=== PATIENT | male | born 1950 | race Caucasian/White ===

== ENCOUNTER 2018-02-11 08:49 | Inpatient (IN) | payer OTHER ==
[2018-02-18] MEDS ORDERED: MECLIZINE 25 MG TABLET PO ONE (06:00)
[2018-02-18] MEDS ORDERED: METOCLOPRAMIDE 10 MG TABLET PO ONE (06:00)
[2018-02-18] MEDS ORDERED: FAMOTIDINE 20MG TABLET PO ONE (06:00)
[2018-02-18] MEDS ORDERED: CELECOXIB 100 MG CAPSULE PO ONE (06:00)
[2018-02-18] MEDS ORDERED: ACETAMINOPHEN 1,000 MG/100 ML BTL IV ONE (06:00)
[2018-02-18] MEDS ORDERED: VANCOMYCIN HCL 1,000 MG in DEXTROSE 5 % IN WATER 250 ML IVPB ONE ×2 (06:00)
[2018-02-18 10:53] LABS: ABO GROUP O; RH TYPE POSITIVE
[2018-02-18 10:54] LABS: ANTIBODY SCREEN NEGATIVE (NEGATIVE)
[2018-02-18] MEDS ORDERED: KETOROLAC 30 MG/ML VIAL IVP PRN ×2 (12:23)
[2018-02-18] MEDS ORDERED: AL HYDROX/MAG HYDROX 30ML UD PO PRN (12:23)
[2018-02-18] MEDS ORDERED: HYDROCODONE/APAP 7.5/325MG TABLET PO PRN ×2 (12:23)
[2018-02-18] MEDS ORDERED: BISACODYL 10 MG SUPP RC PRN (12:23)
[2018-02-18] MEDS ORDERED: TRAMADOL HCL 50 MG TABLET PO PRN ×2 (12:23)
[2018-02-18] MEDS ORDERED: ONDANSETRON HCL IV 4 MG/2 ML VIAL IVP PRN (12:23)
[2018-02-18] MEDS ORDERED: HYDROMORPHONE HCL 2 MG/ML VIAL IM PRN ×2 (12:23)
[2018-02-18] MEDS ORDERED: ZOLPIDEM TARTRATE 5 MG TABLET PO PRN (12:23)
[2018-02-18] MEDS ORDERED: HYDROCODONE/APAP 5/325MG TABLET PO PRN ×2 (12:23)
[2018-02-18] MEDS ORDERED: DIPHENHYDRAMINE HCL 25 MG CAPSULE PO PRN (12:23)
[2018-02-18] MEDS ORDERED: NALOXONE 0.4 MG/1 ML VIAL IVP PRN (12:23)
[2018-02-18] MEDS ORDERED: PROMETHAZINE HCL 12.5 MG in 0.9 % SODIUM CHLORIDE 100ML 50 ML IVPB PRN (12:23)
[2018-02-18] MEDS ORDERED: ACETAMINOPHEN W/ CODEINE 300MG/60MG TABLET PO PRN ×2 (12:23)
[2018-02-18] MEDS ORDERED: ACETAMINOPHEN W/ CODEINE 300MG/30MG TABLET PO PRN ×2 (12:23)
[2018-02-18] MEDS ORDERED: METOCLOPRAMIDE HCL 10 MG/2 ML VIAL IVP PRN (12:23)
[2018-02-18] MEDS ORDERED: ACETAMINOPHEN 325 MG TAB PO PRN (12:23)
[2018-02-18] MEDS ORDERED: MAGNESIUM HYDROXIDE 30 ML UDC PO PRN (12:23)
[2018-02-18] MEDS ORDERED: *PACU ONLY* KETAMINE HCL 10 MG/ML (20ML) VIAL IV ONE (14:00)
[2018-02-18] MEDS ORDERED: MIDAZOLAM HCL 2MG/2ML VIAL IV ONE (14:00)
[2018-02-18] MEDS ORDERED: PROPOFOL 10 MG/ML VIAL IV ONE (14:00)
[2018-02-18] MEDS ORDERED: KETOROLAC 30 MG/ML VIAL IVP ONE (14:00)
[2018-02-18] MEDS ORDERED: ROPIVACAINE HCL (NAROPIN) /PF 5MG/ML 20ML VIAL IV ONE (14:03)
[2018-02-18] MEDS ORDERED: DEXAMETHASONE 4 MG/ML 1ML VIAL IVP ONE (14:03)
[2018-02-18] MEDS ORDERED: DEXTROSE 5 % AND 0.9 % NACL 1,000 ML IV PRN (14:30)
[2018-02-18] MEDS: LOSARTAN POTASSIUM 25 MG TABLET PO SCH (22:14)
[2018-02-18] MEDS: FERROUS SULFATE 325 MG TAB PO SCH (22:14)
[2018-02-18] MEDS: DOCUSATE SODIUM 100 MG CAPSULE PO SCH (22:14)
[2018-02-18] MEDS: VANCOMYCIN HCL 1,000 MG in DEXTROSE 5 % IN WATER 250 ML IVPB SCH ×2 (22:15)
[2018-02-18] MEDS: AMLODIPINE BESYLATE 5MG TAB PO SCH (22:18)
--- NOTE | 2018-02-19 06:09 | RADIOLOGY REPORT ---
EXAM: LEFT KNEE, TWO VIEWS HISTORY: TOTAL KNEE REPLACEMENT. TECHNIQUE: Two views of the left knee were obtained. Comparison: None. FINDINGS: Two views of the left knee show a total knee arthroplasty in anatomic alignment. There is also a small screw in the distal femur. Tiny overhanging of cement on the lateral aspect of the tibial plateau. Tiny lucency distal to the cement in the tibia. No fractures. Normal alignment. IMPRESSION: TOTAL LEFT KNEE ARTHROPLASTY. JOB NUMBER: [id number] MTDD
[2018-02-19 07:03] LABS: HEMATOCRIT 37.4 % (42.0-52.0); HEMOGLOBIN 12.3 gm/dl (14.0-18.0)
[2018-02-19] MEDS: FERROUS SULFATE 325 MG TAB PO SCH ×2 (09:43→21:10)
[2018-02-19] MEDS: RIVAROXABAN 10 MG TABLET PO SCH (09:44)
[2018-02-19] MEDS: DOCUSATE SODIUM 100 MG CAPSULE PO SCH ×2 (09:48→21:10)
[2018-02-19] MEDS: CELECOXIB 100 MG CAPSULE PO SCH (09:49)
--- NOTE | 2018-02-19 09:50 | Rehab Evaluation ---
Patient Information - Patient Information Diagnosis: L knee OA Ordered Treatment: PT Evaluate and Treat Status: Initial Evaluation Surgery: Yes Date of Surgery: 02/18/18 (hardware removal and L TKA) Past Medical/Surgical Hx: PAST MEDICAL/SURGICAL HISTORY Past Surgical History ORIF right ankle lumbar fusion left femur ORIF 2014 Left patella fx tonsils c scopes PMH - Respiratory Hx Respiratory Disorders No PMH - Cardiovascular Hx Cardiovascular Disorders Yes Hx Hypertension Yes: on meds good control Exercise Tolerance Good PMH - Neuro Hx Neurological Disorders Yes Hx Neuropathy Yes: feet since back sx PMH - GI Hx Gastrointestinal Disorders Yes Hx Gastroesophageal Reflux Yes: once in a whiile Comment: pt incontinent of stool sometimes since lumbar injury PMH - Hx Genitourinary Disorders Yes Hx Bladder Problem Yes: pt incontinent since lumbar injury wears depends PMH - Endocrine Hx Endocrine Disorders No PMH - Musculoskeletal Hx Musculoskeletal Disorders Yes Hx Arthritis Yes: left knee Hx Back Injury Yes PMH - Psych Hx Psychiatric Problems No PMH - Hematology/Oncology Hx Hematology/Oncology Yes Disorders Hx Blood Transfusion Reaction No Premorbid Status: Detail (The patient prior to surgery had difficulty ambulating at times.) Social History: Detail (The patient lives with spouse in a one story house with spouse with no stairs at the enterance. The patient's bathroom is equipped with a walke in shower with grab bars, an elevated toilet seat without grab bars. The patient also has a commode with handles that he uses sometimes in the shower. The patient has a two wheeled walker, a rollator walker and a single point cane.) Precautions: [place], Fall, Other (WBAT on the L. Patient also has a Don Kamila brace which is locked in full extension.) - Time With Patient Total Time Spent With Patient (Min): 30 Treatment Procedures: Detail (Initial Evaluation, gait training.) Subjective Information - Subjective Information Per Patient (The patient has no complaints of pain.) Objective Data - Mental Status Patient Orientation: Oriented x3 - Visual Perception Appears within normal limits for therapeutic activities - ROM Not within normal limits (The patient's L knee AROM is limited s/p surgery. Patient has Don Kamila brace locked in 0 degrees on extension. All other AROM is WNL.) - Strength/Tone Not within normal limits (The patient's L LE strength was not tested s/p surgery however is functional.( Patient is able to complete a SLR.) The patient' s R LE strength is WFL.) - Bed Mobility Independent (The patient is independent with supine to and from sit.) - Transfers Independent (The patient is independent with sit to and from stand.) - Balance Balance Sitting: Good Balance Standing: Good - Gait Detail (The patient ambulated with two wheeled walker independently WBAT on the L LE 560 feet x [address]. The patient did not ambulate on steps due to no stairs at home however the patient was able to verbalize the proper stair climbing technique.) Patient Education - Patient Education Teaching Topic: Exercise/Activity (The patient was independent with a modified HEP including: ankle pumps, gluteal sets, submaximal quad set and SLR.) Response: Return Demonstration Teaching Method: Discussion, Demonstration, Handout Teaching Recipient: Patient Barriers To Learning: None Problem List - Problem List Physical Therapy Problem List: Detail (1) Decreased L knee AROM and strength as to be expected following surgery.) Goals - Goals Physical Therapy Goals: The patient has met all inpatient goals. Prognosis - Prognosis Good Plan - Plan Physical Therapy Plan: The patient is discharged from inpatient PT and is to receive Outpatient PT.
[2018-02-19] MEDS: VANCOMYCIN HCL 1,000 MG in DEXTROSE 5 % IN WATER 250 ML IVPB SCH ×2 (11:30)
--- NOTE | 2018-02-19 15:34 | Rehab Evaluation ---
Patient Information - Patient Information Diagnosis: L knee OA, retained femoral hardware Ordered Treatment: OT Evaluate and Treat Status: Initial Evaluation Surgery: Yes Date of Surgery: 02/18/18 (hardware removal and L TKA) Past Medical/Surgical Hx: PAST MEDICAL/SURGICAL HISTORY Past Surgical History ORIF right ankle lumbar fusion left femur ORIF 2015 Left patella fx tonsils c scopes PMH - Respiratory Hx Respiratory Disorders No PMH - Cardiovascular Hx Cardiovascular Disorders Yes Hx Hypertension Yes: on meds good control Exercise Tolerance Good PMH - Neuro Hx Neurological Disorders Yes Hx Neuropathy Yes: feet since back sx PMH - GI Hx Gastrointestinal Disorders Yes Hx Gastroesophageal Reflux Yes: once in a whiile Comment: pt incontinent of stool sometimes since lumbar injury PMH - Hx Genitourinary Disorders Yes Hx Bladder Problem Yes: pt incontinent since lumbar injury wears depends PMH - Endocrine Hx Endocrine Disorders No PMH - Musculoskeletal Hx Musculoskeletal Disorders Yes Hx Arthritis Yes: left knee Hx Back Injury Yes PMH - Psych Hx Psychiatric Problems No PMH - Hematology/Oncology Hx Hematology/Oncology Yes Disorders Hx Blood Transfusion Reaction No Premorbid Status: Detail (The patient prior to surgery had difficulty ambulating at times.) Social History: Detail (The patient lives with spouse in a one story house with no stairs at the entrance. The patient's bathroom is equipped with a walk in shower with grab bars, an elevated toilet seat without grab bars. The patient also has a commode with handles that he uses sometimes in the shower. The patient has a two wheeled walker, a rollator walker and a single point cane. He and spouse share meal prep, laundry and home mgmt.) Precautions: [place], Fall, Other (WBAT on the L. Patient also has a Don Kamila brace which is locked in full extension.) - Time With Patient Total Time Spent With Patient (Min): 40 Treatment Procedures: Detail (OT eval low complexity) Subjective Information - Subjective Information Per Patient Objective Data - Pain Pain Present: No - Mental Status Patient Orientation: Oriented x3 - Visual Perception Appears within normal limits for therapeutic activities - ROM Within normal limits (Cliff UE AROM WNL) - Strength/Tone Within normal limits (Cliff UE strength WNL) - Coordination Appears within normal limits for therapeutic activities - Bed Mobility Independent (Ind with sit to supine) - Transfers Independent (Ind with sit to stand from chair and EOB.) - Balance Balance Sitting: Good Balance Standing: Good - Sensation Intact - Gait Detail (Pt ambulating in room with 2 wheeled walker Indly.) - ADL's/IADL's Detail (Pt educated and able to demonstrate learning of modified LE dressing technique including doffing slipper socks and donning shorts. He was not able to don socks and shoes due to dressing change but reports his will assist him as needed. Reviewed kitchen and shower safety and modifications, pt verbalized learning.) Therapy Assessment - Therapy Assessment Detail (Pt is Ind with self cares and has support from spouse if needed.) Problem List - Problem List Physical Therapy Problem List: Detail (1) Decreased L knee AROM and strength as to be expected following surgery.) Occupational Therapy Problem List: Detail (No current IP OT problems identified. ) Goals - Goals Physical Therapy Goals: The patient has met all inpatient goals. Occupational Therapy Goals: No current IP OT goals identified. Prognosis - Prognosis Good Plan - Plan Physical Therapy Plan: The patient is discharged from inpatient PT and is to receive Outpatient PT. Occupational Therapy Plan: No further IP OT recommended. Thank you for this referral.
[2018-02-19] MEDS: AMLODIPINE BESYLATE 5MG TAB PO SCH (21:10)
[2018-02-19] MEDS: LOSARTAN POTASSIUM 25 MG TABLET PO SCH (21:10)
[2018-02-20 06:55] LABS: HEMOGLOBIN 10.5 gm/dl (14.0-18.0)
[2018-02-20] MEDS: RIVAROXABAN 10 MG TABLET PO SCH (09:46)
[2018-02-20] MEDS: CELECOXIB 100 MG CAPSULE PO SCH (09:46)
[2018-02-20] MEDS: DOCUSATE SODIUM 100 MG CAPSULE PO SCH (09:46)
[2018-02-20] MEDS: FERROUS SULFATE 325 MG TAB PO SCH (09:46)
[2018-02-20] MEDS ORDERED: BUPIVACAINE 0.5% W/EPI MPF 30 ML VIAL IVP ONE (14:31)
[2018-02-20] MEDS ORDERED: TRANEXAMIC ACID 1,000 MG/10 ML ML IV ONE (14:31)
[2018-02-20] MEDS ORDERED: VANCOMYCIN HCL 1 GM VIAL IVPB ONE (14:31)
--- NOTE | 2018-02-21 22:24 | Operative Note ---
DATE OF SURGERY: 02/18/2018 PREOPERATIVE DIAGNOSES: Left knee arthrosis status post open reduction and internal fixation of a distal femur fracture and knee severe stiffness. POSTOPERATIVE DIAGNOSES: Left knee arthrosis status post open reduction and internal fixation of a distal femur fracture and knee severe stiffness. PROCEDURE: 1. Hardware removal of lateral femoral side plate and screws with irrigation and debridement. 2. Quadriceps V-Y advancement and release. 3. Total knee arthroplasty. SURGEON: Roney Vanegas M.D. ANESTHESIA: Spinal, Alexandru Kennedy CRNA. COMPLICATIONS: None. BLOOD LOSS: Minimal. TOURNIQUET TIME: Approximately 110 minutes. OPERATIVE FINDINGS: Healed distal femur fracture. All retained hardware, lateral femoral side plate removed except for one screw in the medial side, small 3.5 screw. [id number] knee arthrosis and very severe tight quadriceps, soft osteoporotic bone, severe scarring in the knee and stiffness. Flexion pre- op was 5 to about 30 degrees; during the knee replacement, 0 to 100; and after doing our advancement and patellar tendon repair about 0 to 30-40 degrees. INDICATIONS FOR OPERATION: This is a 67-year-old male who has a distal femur fracture internal fixation done about 2.5 years ago. He did well and eventually healed but developed severe stiffness in the knee and arthrosis. He is scheduled for the procedures above. I explained the risks and benefits to him in detail for his diagnoses and procedures including but not limited to, infection, nerve injury, vessel injury, persistent pain, persistent numbness and tingling in his knee, periprosthetic fracture, need for resection arthroplasty should the components become infected or loosened, blood clot, and need for further procedures and all of his questions were answered. Rehab and course were outlined and he agreed to proceed. PROCEDURE: The patient was brought to the O.R. and placed in the supine position for proper surgery. His left lower and knee and thigh were prepped and draped in sterile fashion from the hip down for exposure to the lateral thigh. Attention was turned to removing the side plate. We used the previous incision on the distal femur, dissected down on the plate, removed both side screws at the condyles without difficulty in their entirety. Next, the three proximal screws were removed; one percutaneous and two through a limited open incision under direct visualization, again without difficulty. We elevated using Malin elevators and osteotomes and then back-tapped it out distally out of the distal thigh wound. We irrigated both wounds. Closed with # 2 Vicryl, #2-0 Vicryl, and breana. Attention was turned to the knee replacement now. Anterior incision was marked over the knee. We infiltrated with 0.5% Marcaine with Epinephrine. The skin and subcutaneous tissue was dissected down. He had extensive scarring throughout. We incised the capsule medially around the medial border of the patella to the tibial tubercle. I incised the vastus medialis in line with its fibers in a mid vastus split approach. The patella was too scarred down to fito. We shifted laterally with flexion and basically the patellar tendon impulsed completely. He had a severe contracture here and later repaired. Next, we then drilled intracondylar drill hole in the femur and inserted the intramedullary guide danielito and 6 degree cutting block aligned off the distal femoral condyles and cut the distal femoral condyles. Next, we placed the sizing jig on the distal femoral condyle, sized it to be right on size 9. Through the previously placed pinholes, we placed the size 9 5- in-1 cutting jig. We dialed in the anterior cut so it would come out flush without notching and we cut that. It was a good cut and then cut the remainder of the chamfer cuts in the usual fashion. Next, then we placed the size 9 trial component. We centered it, pinned it, removed osteophytes off the periphery. We inserted the resection collar and reamed out and box-osteotomed out the cruciate bone block. We did an extensive amount of scar release, first from the tibial plateau previously to expose the tibia. We seated the spikes in the intertubercular groove two fingerbreadths distally off the anterior cortex. We referenced for a 9 mm cut off the higher lateral plateau. We pinned the cutting jig in place provisionally, rechecked alignment and pinned it, cross-pinned it to complete its fixation. We cut the tibia. The bone was very soft. Next, we removed osteophytes from the posterior femoral condyles using a curved osteotome and removing adhesions and scarring from the meniscus. We checked flexion and extension gaps. We basically had symmetric flexion and extension gaps with an 11 thick poly insert allowing for 2 to 3 mm of varus/valgus laxity in flexion and extension. Overall alignment of cuts in extension were in anatomic valgus orientation. Next, I took the knee into flexion, sized the tibial baseplate to a size 8. We replaced all trial components, set the rotation of the tibial baseplate again in extension using the alignment danielito centered on the hip joint and ankle joint and marked with electrocautery chin on the tibial cortex. Attention was turned to the patella. We cut the patella to allow for a 9 mm thick poly insert. We chamfered off the lateral patellar facet and sized it be 35. We drilled three lithographic photographer apprentice holes, mixed cement, and did a trial range of motion. The patella was bolused previously and then we repaired to the tibial tubercle. We had full extension and flexion to probably 100 degrees. We could tell that it was going to be very tight once we repaired the patellar tendon as far as flexion goes, which it was. Next, then we irrigated copious, changed gloves and brought in a clean sheet. We placed a bone plug in the femoral canal hole and pre-coated both surfaces and impacted down the tibial component and then femoral component, removing excess cement, and then placed the trial tibial poly liner and held the knee in extension and then clamped down the patellar component, removing excess cement. We held the knee in extension until the cement hardened and removed excess cement. Next, we took the knee into flexion. We distracted the knee with bone hook and sponge and removed the trial tibial poly insert. We removed any excess cement around the edges of the components. We injected our injection cocktail of 0.5% Marcaine with Epinephrine, tranexamic acid, and Exparel into the deep capsule medial and lateral, mediolateral periosteum working out superficially, and the quadriceps and vastus medialis. We then impacted down the real tibial poly insert and verified it was interlocked medially and laterally. Final range of motion and stability was the same. Next, we repaired the patellar tendon down to the tibial tubercle with a 4.0 mm cancellous screw and washer and also previously placed a #5 FiberWire suture through drill holes transverse through the tibial tubercle and used a Krackow stitch to traverse medially and laterally , brought it through proximally and then distally and then through proximally and distally medially and laterally, respectively. We tied down over the top securing the patellar tendon to the tibial tubercle. After that repair, range of motion of course was decreased, approximately 0 to 30 degrees. We previously did a V-Y advancement of the quadriceps tendon as well and then repaired and advanced that 2 to 3 cm and tied with #2 Vicryl to try to give him some more flexion early on. Next, we irrigated the knee copiously. We repaired the capsule and quadriceps split with running #2 Quill suture. We irrigated again and closed the skin with #2-0 Vicryl, placed Acticoat and provisional sterile dressing on to be changed to a TAMIA dressing prior to discharge. A knee brace was placed locked at 0 to 30 degrees. The patient tolerated the procedure well. No intraoperative complications. Sponge, needle, and blade counts were correct. He was taken to the Recovery Room neurovascularly intact. He will be discharge in likely one to two days and follow-up in two weeks. JOB NUMBER: [id number], [id number] [facility]
== END 2018-02-20 15:03 | disposition home or self-care (01) | DRG 470 ==
LOC: MEDSURG 02-18 09:52
PROVIDERS: ADMIT Orthopaedic Surgery; ATTEND Orthopaedic Surgery
PROC: 0QPC04Z Removal of Internal Fixation Device from Left Lower Femur, Open Approach (ICD-10-PCS; principal; 2018-02-18 12:00)
PROC: 0SRD069 Replacement of Left Knee Joint with Oxidized Zirconium on Polyethylene Synthetic Substitute, Cemented, Open Approach (ICD-10-PCS; 2018-02-18 12:00)
DX: M17.12 Unilateral primary osteoarthritis, left knee (principal); Z47.2 Encounter for removal of internal fixation device; I10 Essential (primary) hypertension
CPT/HCPCS: 76000; 85014; 85018; 86850; 86900; 86901; 90686; C1713; J1885; J7060

== ENCOUNTER 2018-10-14 09:46 | Day surgery (SDC) | payer OTHER ==
[~2018-10-14 09:46] MED LIST: ACETAMINOPHEN 1,000 MG/100 ML BTL IVPB ONE; CELECOXIB 100 MG CAPSULE PO ONE; FAMOTIDINE 20MG TABLET PO ONE; METOCLOPRAMIDE 10 MG TABLET PO ONE; SCOPOLAMINE 1 PATCH TDSY TD ONE; VANCOMYCIN HCL 1 MG in DEXTROSE 5 % IN WATER 250 ML IVPB ONE
[2018-10-14] MEDS ORDERED: TRANEXAMIC ACID 1,000 MG/10 ML ML IV ONE (09:47)
[2018-10-14] MEDS ORDERED: PROPOFOL 10 MG/ML VIAL IV ONE (09:47)
[2018-10-14] MEDS ORDERED: BUPIVACAINE 0.5% W/EPI MPF 30 ML VIAL IVP ONE (09:47)
[2018-10-14] MEDS ORDERED: BUPIVACAINE LIPOSOME 266MG/20ML VIAL IV ONE (09:47)
[2018-10-14] MEDS ORDERED: VANCOMYCIN HCL 1 GM VIAL IVPB ONE (09:47)
[2018-10-14] MEDS ORDERED: MIDAZOLAM HCL 2MG/2ML VIAL IV ONE (09:47)
[2018-10-14] MEDS ORDERED: KETOROLAC 30 MG/ML VIAL IVP ONE (09:47)
[2018-10-14] MEDS ORDERED: GLYCOPYRROLATE 0.2 MG/ML ML IV ONE (09:47)
[2018-10-14] MEDS ORDERED: LIDOCAINE 2% MDV (20MG/ML) 20ML VIAL IV ONE (09:47)
[2018-10-14 10:43] LABS: ABO GROUP O; RH TYPE POSITIVE
[2018-10-14 10:44] LABS: ANTIBODY SCREEN NEGATIVE (NEGATIVE)
[2018-10-14] MEDS ORDERED: RINGERS SOLUTION,LACTATED 1,000 ML IV ONE ×3 (11:04→14:13)
[2018-10-14] MEDS ORDERED: BUPIVACAINE 0.5% W/EPI MPF 30 ML VIAL SQ ONE (14:12)
[2018-10-14] MEDS ORDERED: BUPIVACAINE LIPOSOME 266MG/20ML VIAL SQ ONE (14:12)
[2018-10-14] MEDS ORDERED: VANCOMYCIN HCL 3,000 MG in RINGERS SOLUTION,LACTATED 3,000 ML IVPB ONE (14:14)
[2018-10-14] MEDS ORDERED: HYDROCODONE/APAP 5/325MG TABLET PO PRN ×2 (15:27)
[2018-10-14] MEDS ORDERED: AL HYDROX/MAG HYDROX 30ML UD PO PRN (15:27)
[2018-10-14] MEDS ORDERED: TRAMADOL HCL 50 MG TABLET PO PRN ×2 (15:27)
[2018-10-14] MEDS ORDERED: PROMETHAZINE HCL 25 MG TABLET PO PRN (15:27)
[2018-10-14] MEDS ORDERED: ACETAMINOPHEN 325 MG TAB PO PRN (15:27)
[2018-10-14] MEDS ORDERED: NALOXONE 0.4 MG/1 ML VIAL IVP PRN (15:27)
[2018-10-14] MEDS ORDERED: MAGNESIUM HYDROXIDE 30 ML UDC PO PRN (15:27)
[2018-10-14] MEDS ORDERED: DIPHENHYDRAMINE HCL 25 MG CAPSULE PO PRN (15:27)
[2018-10-14] MEDS ORDERED: KETOROLAC 30 MG/ML VIAL IVP PRN ×2 (15:27)
[2018-10-14] MEDS ORDERED: METOCLOPRAMIDE 10 MG TABLET PO PRN (15:27)
[2018-10-14] MEDS ORDERED: ONDANSETRON 4 MG ODT TABLET SL PRN (15:27)
[2018-10-14] MEDS ORDERED: ACETAMINOPHEN W/ CODEINE 300MG/60MG TABLET PO PRN ×2 (15:27)
[2018-10-14] MEDS ORDERED: HYDROCODONE/APAP 7.5/325MG TABLET PO PRN ×2 (15:27)
[2018-10-14] MEDS ORDERED: BISACODYL 10 MG SUPP RC PRN (15:27)
[2018-10-14] MEDS ORDERED: ACETAMINOPHEN W/ CODEINE 300MG/30MG TABLET PO PRN ×2 (15:27)
[2018-10-14] MEDS ORDERED: VANCOMYCIN HCL 500 MG in 0.9 % SODIUM CHLORIDE 100ML 100 ML IVPB SCH (16:00)
[2018-10-14] MEDS ORDERED: DEXTROSE 5 % AND 0.9 % NACL 1,000 ML IV PRN (16:00)
--- NOTE | 2018-10-14 16:48 | Rehab Evaluation ---
Patient Information - Patient Information Diagnosis: Pain due to internal orthopedic prosthesis - L Knee Ordered Treatment: PT Evaluate and Treat Status: Initial Evaluation Surgery: Yes (Clean out - BLACK L Knee) Date of Surgery: 10/14/18 Past Medical/Surgical Hx: PAST MEDICAL/SURGICAL HISTORY Past Surgical History DEBRIDEMENTS LEFT KNEE X'S 2 LTKA 9-24-18 ORIF right ankle lumbar fusion left femur ORIF 2014 Left patella fx tonsils c scopes PMH - Respiratory Hx Respiratory Disorders No PMH - Cardiovascular Hx Cardiovascular Disorders Yes Hx Hypertension Yes: on meds good control Exercise Tolerance Fair PMH - Neuro Hx Neurological Disorders Yes Hx Neuropathy Yes: feet since back sx PMH - GI Hx Gastrointestinal Disorders Yes Hx Gastroesophageal Reflux Yes: once in a whiile Comment: pt incontinent of stool sometimes since lumbar injury PMH - Hx Genitourinary Disorders Yes Hx Bladder Problem Yes: pt incontinent since lumbar injury wears depends PMH - Endocrine Hx Endocrine Disorders No PMH - Musculoskeletal Hx Musculoskeletal Disorders Yes Hx Arthritis Yes: left knee Hx Back Injury Yes PMH - Psych Hx Psychiatric Problems No PMH - Hematology/Oncology Hx Hematology/Oncology Yes Disorders Hx Blood Transfusion Reaction No Premorbid Status: Detail (Patient had complications following TKA and required BLACK. Patient reports prior to surgery patient was retired but works occassionally at [employer]. Return to work date is undetermined at this time.) Social History: Detail (Patient currently lives in single story home with his spouse with 0 steps entering the home. Patient reports that he has a walk in shower with grab bars and a hand held shower piece. Patient reports that toilet is elevated with grab bars around it as well. Patient reports that he has a shower bench, walker, and cane available. Patient is currently attending outpatient PT and is expecting to continue following discharge. Patient is planning on leaving in [place] following discharge.) - Time With Patient Total Time Spent With Patient (Min): 20 Subjective Information - Subjective Information Per Patient (Patient reported no pain throughout evaluation.) Objective Data - Mental Status Patient Orientation: Oriented x3 - ROM Not within normal limits (Patient's left lower extremity range of motion was limited due to s/p surgery, as expected. Patient's right lower extremity range of motion was found to be within functional limits with sit to stand transfer and ambulation.) - Strength/Tone Not within normal limits (Patient's left lower extremity strength was limited due to s/p surgery, as expected. Patient was assessed functionally with sit to stand transfer and ambulation and was determined to be within functional limits.) - Transfers Independent (Patient completed sit to stand transfer from sitting L EOB with 2- wheeled walker for support and supervision x1 for safety.) - Gait Detail (Patient ambulated with 2-wheeled walker with [id number] for safety for a total of 544 feet. Patient ambulated with antalgic gait with decreased heel strike and stride length, as expected due to patient being s/p surgery. At the end of ambulation, patient demonstrated slightly flexed trunk posture due to increased weight bearing through upper extremities.) Therapy Assessment - Therapy Assessment Detail (Patient did well throughout evaluation and was motivated to regain strength. Patient completed sit to stand transfer from L EOB with supervision x1. Patient then ambulated 544 feet with 2-wheeled walker with CGAx1 initially for safety and then progressed to supervision x1. Patient reported that he was motivated to go home. Patient demonstrated that he was independent with his home exercise program and is currently receiving outpatient physical therapy.) Patient Education - Patient Education Teaching Topic: Exercise/Activity (Patient was educated on home exercise program and was deemed to be independent with all exercises.) Problem List - Problem List Physical Therapy Problem List: Detail (1. Decreased strength in left lower extremity due to s/p surgery. 2. Decreased range of motion in left lower extremity due to s/p surgery. 3. Altered gait pattern due compensation over time due to patient's pain and scar tissue condition.) Goals - Goals Physical Therapy Goals: Patient has met all inpatient PT goals and is expected to continue outpatient PT. Prognosis - Prognosis Good Plan - Plan Physical Therapy Plan: Patient is found to be safe and independent with transfers with sit to stand and ambulation. Patient is ready for discharge from inpatient PT and would benefit from continued outpatient PT.
[2018-10-14] MEDS ORDERED: DOCUSATE SODIUM 100 MG CAPSULE PO SCH (22:00)
--- NOTE | 2018-10-15 07:19 | Rehab Evaluation ---
Patient Information - Patient Information Diagnosis: Pain due to internal orthopedic prosthesis - L Knee Ordered Treatment: OT Evaluate and Treat Status: Initial Evaluation Surgery: Yes (left knee revision and removal of antibiotic beads) Date of Surgery: 10/14/18 Past Medical/Surgical Hx: PAST MEDICAL/SURGICAL HISTORY Past Surgical History DEBRIDEMENTS LEFT KNEE X'S 2 LTKA 9-24-18 ORIF right ankle lumbar fusion left femur ORIF 2014 Left patella fx tonsils c scopes PMH - Respiratory Hx Respiratory Disorders No PMH - Cardiovascular Hx Cardiovascular Disorders Yes Hx Hypertension Yes: on meds good control Exercise Tolerance Fair PMH - Neuro Hx Neurological Disorders Yes Hx Neuropathy Yes: feet since back sx PMH - GI Hx Gastrointestinal Disorders Yes Hx Gastroesophageal Reflux Yes: once in a whiile Comment: pt incontinent of stool sometimes since lumbar injury PMH - Hx Genitourinary Disorders Yes Hx Bladder Problem Yes: pt incontinent since lumbar injury wears depends PMH - Endocrine Hx Endocrine Disorders No PMH - Musculoskeletal Hx Musculoskeletal Disorders Yes Hx Arthritis Yes: left knee Hx Back Injury Yes PMH - Psych Hx Psychiatric Problems No PMH - Hematology/Oncology Hx Hematology/Oncology Yes Disorders Hx Blood Transfusion Reaction No Social History: Detail (Patient currently lives in single story home with his spouse with 0 steps entering the home. Patient reports that he has a walk in shower with grab bars and a hand held shower. Patient reports that toilet is elevated without grab bars but a half wall next to toilet. Patient reports that he has a shower bench, walker, and cane available. Patient is currently attending outpatient PT and is expecting to continue following discharge. Pt is responsible for home mgmt, meal prep and laundry.) Precautions: [place], Fall - Time With Patient Total Time Spent With Patient (Min): 35 Treatment Procedures: Detail (OT eval low complexity) Subjective Information - Subjective Information Per Patient Objective Data - Pain Pain Present: Yes (06/06) - Mental Status Patient Orientation: Oriented x3 - Visual Perception Appears within normal limits for therapeutic activities - ROM Within normal limits (Cliff UE AROM WNL) - Strength/Tone Within normal limits (Cliff UE strength WNL) - Coordination Appears within normal limits for therapeutic activities - Bed Mobility Independent (Ind with supine to sit) - Transfers Independent (Ind with sit to stand from EOB) - Balance Balance Sitting: Good Balance Standing: Good - Sensation Intact - ADL's/IADL's Detail (Pt educated and able to demonstrate modified LE dressing techniques including doffing slipper socks and donning shorts, socks and slip on shoes. Reviewed shower and kitchen modifications and safety, pt verbalized understanding.) Therapy Assessment - Therapy Assessment Detail (Pt is Ind with modified LE dressing techniques.) Problem List - Problem List Physical Therapy Problem List: Detail (1. Decreased strength in left lower extremity due to s/p surgery. 2. Decreased range of motion in left lower extremity due to s/p surgery. 3. Altered gait pattern due compensation over time due to patient's pain and scar tissue condition.) Occupational Therapy Problem List: Detail (No current IP OT problems identified.) Goals - Goals Physical Therapy Goals: Patient has met all inpatient PT goals and is expected to continue outpatient PT. Occupational Therapy Goals: No current IP OT goals identified. Prognosis - Prognosis Good Plan - Plan Physical Therapy Plan: Patient is found to be safe and independent with transfers with sit to stand and ambulation. Patient is ready for discharge from inpatient PT and would benefit from continued outpatient PT. Occupational Therapy Plan: No further IP OT recommended. Thank you for this referral.
--- NOTE | 2018-10-17 08:20 | Operative Note ---
DATE OF SURGERY: 10/14/2018 PREOPERATIVE DIAGNOSIS: Infection status post total knee arthroplasty, status post debridement and placement of antibiotic beads and attempted repair of patellar tendon previously. POSTOPERATIVE DIAGNOSIS: Infection status post total knee arthroplasty, status post debridement and placement of antibiotic beads and attempted repair of patellar tendon previously. OPERATION: 1. Irrigation and debridement of muscle and subcutaneous tissue capsule scar and bone. 2. Removal of cement antibiotic beads, 22 out of 24. SURGEON: Roney Vanegas M.D. ANESTHESIA: Spinal. ANESTHESIA PROVIDER: VAUGHN Guerra CRNA COMPLICATIONS: None. ESTIMATED BLOOD LOSS: Minimal. TOURNIQUET TIME: Approximately 60 minutes. OPERATIVE FINDINGS: Almost completely absent deficient extensor mechanism patellar tendon, the mid portion of it, 2/3 is atrophied and retracted back past the joint line. There is still a portion of it attached, although scar tissue anterior medially, prior subq tendons also deficient, some scars and defects in that. Massive scarring throughout the knee, severe stiffness, limited range of motion. Flexion was approximately 10 to 40 degrees. No gross instability in the knee. INDICATION: This is a 68-year-old male who has had long problems with his left knee, he had a distal femur fracture years ago and underwent internal fixation. 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 He underwent, by myself, hardware removal, again massive scarring was found in the anterior lateral knee throughout the knee, hardware removal lateral distal femur plate screws and then a total knee arthroplasty. He initially did well and then developed infection. He underwent irrigation and debridement and his patellar tendon had been eaten away by the infection distally, except the anterior medial portion. He underwent placement of antibiotic beads about 4 months ago, now scheduled for debridement and removal. I explained the risks and benefits to him in detail for the diagnosis and the procedure and the fact that we may not be able and likely will not be able to remove all beads due to the massive scarring throughout the knee, also nerve infection, blood clot, nerve injury, vessel injury, the need for anticoagulation, blood clots with needed medication, need for procedures, need for recurrence of infection, need for long-term IV antibiotics, and postoperative stiffness, may need an amputation. All of his questions were answered. The course outlined and he agreed to proceed. PROCEDURE: The patient was brought into the OR and placed in the supine position, prepped for surgery. Spinal anesthesia is induced, and his left lower extremity and knee were prepped and draped in sterile fashion, the left knee was prepped again with Chloraprep and it was draped. An intraoperative timeout was performed. Next, preoperative range of motion as above, very stiff knee and he had had this actually even before his knee replacement, a very stiff range of motion. We exsanguinated the leg with Esmarch and infiltrated the incision with 0.5% Marcaine with epinephrine, tranexamic acid and Exparel mixture, a portion of it and then we exsanguinated his leg, inflated the tourniquet to 250 mmHg pressure. Next, the skin and subcutaneous dissected down to the knee and immediately evident a large, thick scarring throughout the knee. We dissected through the scar anteriorly and the patellar defect was readily evident. There was an approximately a 3 x 5 cm defect in the midline of the extensor mechanism of the patellar tendon which is a thin scar and retracted back. The anterior medial portion about 2 cm wide to 3 cm wide was still attached to the anterior medial tibia with sheets of scar. There is no gross pus. We immediately identified some of the beads and began dissecting through the knee and made a more proximal medial arthrotomy to remove more of the beads. We did not want to disrupt the still attached and only remaining extensor mechanism attachment to the anterior medial tibia, therefore we left that alone through the entire case. Next, we irrigated, and continued dissection and after extensive dissection, we removed 22 out of 24 beads. After irrigation we took tissue for culture and sent culture fluid for culture. We desired initially to exchange the polyethylene insert, however I could not get it out of the anterior defect and it would be too large, I did not want to take down whatever extensor scarring and portion of the patellar tendon he still had left anterior medially, therefore we did not exchange the poly insert. Next, we then completed our procedure to close and then started closing with 2 Vicryl, a figure-of-8, into medial deep capsule thick scar layer and then irrigated again and closed the skin with 2-0 Vicryl buried and then the skin with breana and 0 Monocryl and injected the knee again with 0.5% Marcaine with epinephrine, Exparel and tranexamic acid mixture. Sterile dressing applied with Samuel wrap. The patient tolerated the procedure well, no complications. Sponge and needle counts. To recovery stable and intact. DISCHARGE INSTRUCTIONS: He is discharged as an outpatient and follow up in 1 week. CC: Dr. Chin CHAMBERS
== END 2018-10-14 18:30 | disposition home or self-care (01) ==
LOC: SUR 09:46 → MEDSURG 15:51 → SUR 18:30
PROVIDERS: ATTEND Orthopaedic Surgery
DX: T84.53XA Infection and inflammatory reaction due to internal right knee prosthesis, initial encounter (principal); Z96.7 Presence of other bone and tendon implants; I10 Essential (primary) hypertension
CPT/HCPCS: 11044; 97602; 11982; 01392; 64447; 86900; 86901; 86850; J1885; J3370; C9290; J3490; 76942; J7060; J7120